=== PATIENT | female | born 1975 | race Caucasian/White ===

== ENCOUNTER 2016-12-27 14:34 | Emergency (ER) | payer OTHER ==
[2016-12-27 14:52] VITALS: TEMP 97.9; BMI 26.4
--- NOTE | 2016-12-27 15:37 | PDOC ---
History of Present Illness - General Chief Complaint: Pain Stated Complaint: UP RT ABD PAIN Time Seen by Provider: 12/27/16 15:10 History Source: Patient Exam Limitations: Language Barrier - History of Present Illness Travel History: No Initial Comments: 12/27/16 15:38 41 yo A2 @ 5W gestation based off LMP(11/22/16) presents with 1 month history of Left sided abdominal pain. She states that for the past month she has had worsening intermittent Left sided abdominal dull ache pressure-like pain. Pain is 6/10 and starts in LUQ and radiates down LLQ. No alleviating or aggravating factors. No nausea, vomiting, diarrhea or constipation.She was being worked up as outpatient when one week prior to this ED visit she discovered she was . No care. Saw a GI specialist who stated he could not do any further workup because of her . Denies vaginal bleeding. Denies CP, PAZ, SOB, palpitations, fever or chills. Timing/Duration: reports: getting worse Quality: reports: moderate Abdominal Pain Onset Location: reports: LUQ Pain Radiation: reports: LLQ Activities at Onset: reports: no specific activity Treatment Prior to Arrive: improves with: antacids Aggravating Factors: improves with: None Alleviating Factors: improves with: None Past History - Travel Traveled outside of the country in the last 30 days: No Close contact w/someone who was outside of country & ill: No - Past Medical History Allergies/Adverse Reactions: Allergies Allergy/AdvReac Type Severity Reaction Status Date / Time morphine Allergy Intermediate Hives Verified 06/09/16 16:13 Home Medications: Ambulatory Orders NK [No Known Home Medication] 12/27/16 - Reproductive History (#): 3 Para: 2 Therapeutic (s) & number: No Spontaneous : 1 - Psycho/Social/Smoking Cessation Hx Anxiety: No Suicidal Ideation: No Smoking Status: No Smoking History: Never smoked Have you smoked in the past 12 months: No Number of Cigarettes Smoked Daily: 0 Information on smoking cessation initiated: No Hx Alcohol Use: No Drug/Substance Use Hx: No Substance Use Type: None Review of Systems - Review of Systems Constitutional: No: Chills, Fever Respiratory: No: Shortness of Breath Cardiac (ROS): No: Chest Pain ABD/GI: Yes: Poor Fluid Intake, Abdominal cramping : No: Burning, Dysuria, Discharge, Hematuria All Other Systems: Reviewed and Negative *Physical Exam - Vital Signs Last Vital Signs Temp Pulse Resp BP Pulse Ox 97.9 F 100 H 18 133/84 100 12/27/16 14:47 12/27/16 14:47 12/27/16 14:47 12/27/16 14:47 12/27/16 14:47 - Physical Exam General Appearance: Yes: Mild Distress HEENT: positive: EOMI, CARMELLA Neck: positive: Supple Respiratory/Chest: positive: Lungs Clear, Normal Breath Sounds. negative: Respiratory Distress, Accessory Muscle Use Cardiovascular: positive: Regular Rhythm, Regular Rate, S1, S2. negative: Edema , JVD, Murmur Gastrointestinal/Abdominal: positive: Normal Bowel Sounds, Flat, Soft, Tenderness (LUQ and LLQ tenderness on deep palpation. ). negative: Pulsatile Mass, Guarding, Rebound Musculoskeletal: positive: Normal Inspection Extremity: positive: Normal Inspection, Normal Range of Motion Integumentary: positive: Normal Color, Dry, Warm. negative: Cyanotic, Erythema , Jaundice ED Treatment Course - LABORATORY CBC & Chemistry Diagram: 12/27/16 13:50 12/27/16 13:50 - RADIOLOGY Radiograph Interpretation: 12/27/16 19:02 EXAM#: TYPE/EXAM: RESULT: [id number] US/ LIMITED US Assess for IUP. Pelvis ultrasound, transvesical and transvaginal Compared to prior pelvis ultrasound dated 06/16/2016 The uterus measures 10.6 x 4.4 cm. An intrauterine gestational sac like structure is present with a mean sac diameter of 9 mm consistent with 5 weeks 3 days of gestation. A tiny yolk sac is identified measuring 2 mm. No pole is seen. Note is made of a small hypoechoic density in the posterior myometrium measuring 8 mm that may represent a small fibroid. The right ovary measures 2.3 x 2.2 cm and appears unremarkable with normal vascular flow. Left ovary measures 2.4 x 2.3 cm with a simple cyst/ corpus the tube cyst measuring 1.7 cm and normal vascular flow. There is no free fluid in the cul-de-sac Impression: Single intrauterine gestational sac like structure with estimated gestational age of 5 weeks 3 days. No pole is identified. Correlation with serial quantitative serum beta hCG and follow- up ultrasound is recommended. Simple cyst/corpus the tube cyst in the left ovary measuring 1.7 cm probable small posterior myometrial fibroid measuring 8 mm Reported By: Maximo Gill MD 12/27/16 1866 Medical Decision Making - Medical Decision Making 12/27/16 15:48 A:41 yo A2 presents with 1 month history of right sided abdominal pain. Will r/o ectopic and confirm IUP. P: * CBC, CMP, UA * US and quantitative BHCG. *DC/Admit/Observation/Transfer Diagnosis at time of Disposition: Threatened - Discharge Dispostion Disposition: HOME Condition at time of disposition: Stable Admit: No - Referrals Referrals: Kerri Pineda NP [Primary Care Provider] - Wilson Garcia MD [Staff Physician] - - Patient Instructions Printed Discharge Instructions: DI for -- Discomforts and Remedies Additional Instructions: You will need to follow up with an Dr. Garcia OBGYN. You will need an follow up Bhcg and US. Regular diet. Increase activity as tolerated. If pain worsens or fever/chills develop please return to ER.
--- NOTE | 2016-12-27 15:52 | PDOC ---
Attending Attestation - Resident Resident Name: Scott Farfan - ED Attending Attestation I have performed the following: I have examined & evaluated the patient, The case was reviewed & discussed with the resident, I agree w/resident's findings & plan, Exceptions are as noted - HPI HPI: 41 yo F presents with abd pain. She state that she saw a GI specialist for her symptoms, at which time she found out she was . She has not yet had any visits and is not sure how many weeks she is. She states that her abdominal pain is left-sided, upper to mid abdomen, and radiating to lower abdomen. Denies N/V/D, constipation, fever. She also c/o recent heartburn symptoms. Denies vaginal discharge, vaginal bleeding. - Physicial Exam PE: GENERAL: Awake, alert, and fully oriented, in no acute distress HEAD: No signs of trauma EYES: PERRLA, EOMI, sclera anicteric, conjunctiva clear ENT: Auricles normal inspection, hearing grossly normal, nares patent, oropharynx clear without exudates. Moist mucosa NECK: Normal ROM, supple, no lymphadenopathy, JVD, or masses LUNGS: Breath sounds equal, clear to auscultation bilaterally. No wheezes, and no crackles HEART: Regular rate and rhythm, normal S1 and S2, no murmurs, rubs or gallops ABDOMEN: Soft, +L mid abdominal tenderness, normoactive bowel sounds. No guarding, no rebound. No masses EXTREMITIES: Normal range of motion, no edema. No clubbing or cyanosis. No cords, erythema, or tenderness NEUROLOGICAL: Cranial nerves II through XII grossly intact. Normal speech, normal gait SKIN: Warm, Dry, normal turgor, no rashes or lesions noted. - Medical Decision Making 41 yo F presents with positive test, L sided abdominal pain. R/o UTI, r/o ectopic. Will obtain ultrasound, labs, and UA.
[2016-12-27 15:58] LABS: BASOPHIL 0.5 % (0-2.0); EOSINOPHIL 0.4 % (0-4.5); MCH 28.6 pg (25.7-33.7); MCHC 33.1 g/dl (32.0-36.0); MEAN CELL VOLUME 86.6 fl (80-96); MEAN PLT VOLUME 9.1 fl (7.5-11.1); NEUTROPHILS 70.5 % (42.8-82.8); PLATELET COUNT 297 K/MM3 (134-434); RDW 14.3 % (11.6-15.6); WHITE BLOOD COUNT 10.9 K/mm3 (4.0-10.0)
[2016-12-27 16:18] LABS: URINE APPEARANCE CLEAR; URINE BILIRUBIN NEGATIVE (NEGATIVE); URINE COLOR LTYELLOW; URINE GLUCOSE (UA) NEGATIVE (NEGATIVE); URINE KETONE NEGATIVE (NEGATIVE); URINE LEUK ESTERASE NEGATIVE (NEGATIVE); URINE NITRITE NEGATIVE (NEGATIVE); URINE PROTEIN NEGATIVE (NEGATIVE); URINE UROBILINOGEN NEGATIVE E.U./dl (0.2-1.0)
[2016-12-27 16:19] LABS: URINE BLOOD 1+ (NEGATIVE)
[2016-12-27 16:20] LABS: URINE MUCUS RARE; URINE RBC 3 /hpf (0-3); URINE WBC 1 /hpf (3-5)
[2016-12-27 16:28] LABS: ALBUMIN 3.8 g/dl (3.4-5.0); ANION GAP 11 (8-16); BILIRUBIN,TOTAL 0.3 mg/dL (0.2-1.0); CO2 25 mmol/L (21-32); CREATININE 0.7 mg/dL (0.55-1.02); GLUCOSE,RANDOM 82 mg/dL (74-106); SGOT/AST 14 U/L (15-37); SGPT/ALT 19 U/L (12-78); TOT PROT 7.2 g/dl (6.4-8.2)
[2016-12-27 16:43] LABS: ALK PHOS 80 U/L (45-117)
[2016-12-27 19:14] VITALS: BP 100/59; PULSE 73
== END 2016-12-27 19:33 | disposition home or self-care (01) ==
LOC: JER 14:34
DX: O20.0 Threatened abortion (principal); O34.81 Maternal care for other abnormalities of pelvic organs, first trimester; N83.292 Other ovarian cyst, left side; O34.11 Maternal care for benign tumor of corpus uteri, first trimester; D25.9 Leiomyoma of uterus, unspecified; Z3A.01 Less than 8 weeks gestation of pregnancy
CPT/HCPCS: 36415; 76815-TC; 80053; 81003; 81015; 84702; 85025; 99283-25

== ENCOUNTER 2017-04-14 15:50 | Emergency (ER) | payer OTHER ==
[2017-04-14 16:15] VITALS: BP 123/89; PULSE 98; TEMP 98.4; BMI 33.2
--- NOTE | 2017-04-14 16:41 | PDOC ---
History of Present Illness - General Chief Complaint: Pain Stated Complaint: PAIN IN BOTH HANDS Time Seen by Provider: 04/14/17 16:23 History Source: Patient Exam Limitations: No Limitations - History of Present Illness Initial Comments: 04/14/17 16:52 41-year-old female approximately 5 months presents the ED with complaints of bilateral hand pain greater than left hand over the past few months associated burning at night and decreased sensation. Patient states has no history of carpal tunnel, neck problems, or weakness to upper extremities. Timing/Duration: intermittent Severity: mild Associated Symptoms: reports: denies symptoms Past History - Travel Traveled outside of the country in the last 30 days: No Close contact w/someone who was outside of country & ill: No - Past Medical History Allergies/Adverse Reactions: Allergies Allergy/AdvReac Type Severity Reaction Status Date / Time morphine Allergy Intermediate Hives Verified 04/14/17 16:16 Home Medications: Ambulatory Orders NK [No Known Home Medication] 12/27/16 - Reproductive History Is Patient Now?: Yes (#): 3 Para: 2 Therapeutic (s) & number: No Spontaneous : 1 - Psycho/Social/Smoking Cessation Hx Anxiety: No Suicidal Ideation: No Smoking Status: No Smoking History: Never smoked Have you smoked in the past 12 months: No Number of Cigarettes Smoked Daily: 0 Information on smoking cessation initiated: No Hx Alcohol Use: No Drug/Substance Use Hx: No Substance Use Type: None Patient Lives Alone: No Lives with/in: spouse/SO Review of Systems - Review of Systems Able to Perform ROS?: Yes Constitutional: No: Symptoms Reported ABD/GI: No: Symptoms Reported : No: Symptoms Reported Musculoskeletal: Yes: Joint Pain (bilateral wrist). No: Muscle Weakness Integumentary: No: Symptoms Reported, Pallor Neurological: Yes: Paresthesia, Tingling. No: Weakness Endocrine: No: Symptoms Reported Hematologic/Lymphatic: No: Symptoms Reported *Physical Exam - Vital Signs Last Vital Signs Temp Pulse Resp BP Pulse Ox 98.4 F 98 H 17 123/89 100 04/14/17 16:13 04/14/17 16:13 04/14/17 16:13 04/14/17 16:13 04/14/17 16:13 - Physical Exam General Appearance: Yes: Nourished, Appropriately Dressed. No: Apparent Distress Comments:: 04/14/17 16:56 2+ bilateral radial Extremity: positive: Normal Capillary Refill, Normal Inspection, Normal Range of Motion, Tender (over over inner wrists. - tinel test. + phalens maneuver. ) Integumentary: positive: Normal Color, Warm, Moist Neurologic: positive: Motor Strength 5/5 (hand grasp), Other (normal anna test) . negative: Numbness, Sensory Deficit Medical Decision Making - Medical Decision Making 04/14/17 17:03 Pt with clinical presentation of carpal tunnel syndrome. Pt is approx 5 months . No xrays done. Pt given supportive tools for the above along with referral to dr west *DC/Admit/Observation/Transfer Diagnosis at time of Disposition: Carpal tunnel syndrome during - Discharge Dispostion Disposition: HOME Condition at time of disposition: Good - Referrals Referrals: Jin Nye MD [Primary Care Provider] - Martin West MD [Staff Physician] - - Patient Instructions Printed Discharge Instructions: DI for Carpal Tunnel Syndrome Additional Instructions: Please take Tylenol for discomfort and wear braces at night as recommended. Please also follow-up with referred orthopedist. May also apply heat to the affected areas which may alleviate discomfort. Print Language: [place]
== END 2017-04-14 16:45 | disposition home or self-care (01) ==
LOC: JERFT 15:50
DX: O26.892 Other specified pregnancy related conditions, second trimester (principal); G56.03 Carpal tunnel syndrome, bilateral upper limbs
CPT/HCPCS: 99281-25

== ENCOUNTER 2021-09-27 12:47 | Emergency (ER) | payer OTHER ==
[2021-09-27] MEDS ORDERED: ACETAMINOPHEN 325 MG TABLET (FP) PO ONE (13:45)
[2021-09-27] MEDS ORDERED: ACETAMINOPHEN 325 MG TABLET (FP) ONE (14:04)
[2021-09-27 15:15] VITALS: BP 110/68; PULSE 77; TEMP 98.6
== END 2021-09-27 15:15 | disposition home or self-care (01) ==
LOC: JER 12:47
DX: S09.90XA Unspecified injury of head, initial encounter (principal); W22.8XXA Striking against or struck by other objects, initial encounter
CPT/HCPCS: 99283-25